=== PATIENT | female | born 1985 | race Caucasian/White ===

== ENCOUNTER 2016-09-12 12:16 | Emergency (ER) | payer OTHER ==
[2016-09-12 12:24] VITALS: PULSE 70; BMI 32.3
--- NOTE | 2016-09-12 12:31 | PDOC ---
History of Present Illness - General History Source: Patient Exam Limitations: No Limitations - History of Present Illness Initial Comments: 09/12/16 12:46 The patient is a 31 year old female who is 6 weeks , A2 with a significant past medical history of GERD, who presents to the emergency department with vaginal bleeding for the past 2 weeks. She reports that her vaginal bleeding is a mild spotting, mostly noticeable when she wipes. She states that she recently saw her ARCADE TECHNICIAN who performed an ultrasound and sent her in for evaluation of a possible ectopic . She reports that she has some mild left lower abdominal pain, without radiation or modifying factors. The patient denies chest pain, shortness of breath, headache and dizziness. Denies fever, chills, nausea, vomit, diarrhea and constipation. Denies dysuria, frequency, urgency and hematuria. LMP: 08/06/2016 Allergies: Sulfa Past surgical history: (x2) Social history: No alcohol, tobacco or drug use reported ARCADE TECHNICIAN - Dr. Riley <Sree Beckett - Last Filed: 09/12/16 16:19> <Leigh Ann Gomez - Last Filed: 09/13/16 00:17> - General Chief Complaint: Vaginal Bleeding Stated Complaint: VAGINAL r/o ectopic BLEEDING, 6 WKS Time Seen by Provider: 09/12/16 12:29 Past History <Sree Beckett - Last Filed: 09/12/16 16:19> - Past Medical History Asthma: No Cancer: No Cardiac Disorders: No Diabetes: No GI Disorders: Yes (GERD) HTN: No Suicide Attempt (Hx): No Seizures: No Thyroid Disease: No - Immunization History Immunization Up to Date: Yes - Psycho/Social/Smoking Cessation Hx Anxiety: No Suicidal Ideation: No Smoking Status: No Smoking History: Never smoked Have you smoked in the past 12 months: No Number of Cigarettes Smoked Daily: 1 If you are a former smoker, when did you quit?: 2010 Information on smoking cessation initiated: No Hx Alcohol Use: No Drug/Substance Use Hx: No Substance Use Type: None Hx Substance Use Treatment: No <Leigh Ann Gomez - Last Filed: 09/13/16 00:17> - Past Medical History Allergies/Adverse Reactions: Allergies Allergy/AdvReac Type Severity Reaction Status Date / Time Sulfa (Sulfonamide Allergy Rash Verified 09/12/16 12:21 Antibiotics) Home Medications: Ambulatory Orders NK [No Known Home Medication] 09/12/16 Review of Systems - Review of Systems Able to Perform ROS?: Yes Comments:: 09/12/16 12:46 GENERAL/CONSTITUTIONAL: No fever or chills. No weakness. HEAD, EYES, EARS, NOSE AND THROAT: No change in vision. No ear pain or discharge. No sore throat. CARDIOVASCULAR: No chest pain or shortness of breath RESPIRATORY: No cough, wheezing, or hemoptysis. GASTROINTESTINAL: (+) Abdominal pain. No nausea, vomiting, diarrhea or constipation. GENITOURINARY: (+) Vaginal bleeding. No dysuria, frequency, or change in urination. MUSCULOSKELETAL: No joint or muscle swelling or pain. No neck or back pain. SKIN: No rash NEUROLOGIC: No headache, vertigo, loss of consciousness, or change in strength/ sensation. ENDOCRINE: No increased thirst. No abnormal weight change HEMATOLOGIC/LYMPHATIC: No anemia, easy bleeding, or history of blood clots. ALLERGIC/IMMUNOLOGIC: No hives or skin allergy. <Sree Beckett - Last Filed: 09/12/16 16:19> *Physical Exam - Vital Signs Last Vital Signs Temp Pulse Resp BP Pulse Ox 98.5 F 70 18 114/68 100 09/12/16 12:22 09/12/16 12:22 09/12/16 12:22 09/12/16 12:22 09/12/16 12:22 - Physical Exam Comments: 09/12/16 12:47 GENERAL: Awake, alert, and fully oriented, in no acute distress HEAD: No signs of trauma, normocephalic, atraumatic EYES: PERRLA, EOMI, sclera anicteric, conjunctiva clear ENT: Auricles normal inspection, hearing grossly normal, nares patent, oropharynx clear without exudates. Moist mucosa NECK: Normal ROM, supple, no lymphadenopathy, JVD, or masses LUNGS: No distress, speaks full sentences, clear to auscultation bilaterally HEART: Regular rate and rhythm, normal S1 and S2, no murmurs, rubs or gallops, peripheral pulses normal and equal bilaterally. ABDOMEN: Soft, normoactive bowel sounds. No guarding, no rebound. No masses EXTREMITIES: Normal inspection, Normal range of motion, no edema. No clubbing or cyanosis. NEUROLOGICAL: Cranial nerves II through XII grossly intact. Normal speech, normal gait, no focal sensorimotor deficits SKIN: Warm, Dry, normal turgor, no rashes or lesions noted. ARCADE TECHNICIAN: (+) Left sided adnexal tenderness. Scant vaginal bleeding. <Sree Beckett - Last Filed: 09/12/16 16:19> - Vital Signs Last Vital Signs Temp Pulse Resp BP Pulse Ox 98.5 F 70 18 114/68 100 09/12/16 12:22 09/12/16 12:22 09/12/16 12:22 09/12/16 12:22 09/12/16 12:22 <Leigh Ann Gomez - Last Filed: 09/13/16 00:17> ED Treatment Course - LABORATORY CBC & Chemistry Diagram: 09/12/16 12:57 - RADIOLOGY Radiograph Interpretation: 09/12/16 16:19 Transvaginal ultrasound Reviewed by: Dr. Ruben King Impression: An intrauterine gestation is noted. No embryonic cardiac activity is seen at this time. <Sree Beckett - Last Filed: 09/12/16 16:19> - LABORATORY CBC & Chemistry Diagram: 09/12/16 12:57 <Leigh Ann Gomez - Last Filed: 09/13/16 00:17> Medical Decision Making - Medical Decision Making 09/12/16 13:11 This 31-year-old female was sent over from Dr. Riley's office for concern of ectopic Seen by Dr. Riley on Tuesday Past medical history significant for 5, para 2 Past surgical history includes 2 C-sections -statistical financial analyst called and Dr. Samano [phone] would like a call back once we have her ultrasound and beta hcg 09/12/16 16:16 I discussed the findings with statistical financial analyst ,Dr. Kay Renee and the ultrasound shows intrauterine gestation of 6 weeks and 6 days, but there are no embryonic heart tones at this time Patient is Rh- and received Imogam The possibility of a heterotopic was discussed with the patient. She will follow-up with Dr. Riley this week 09/13/16 00:16 <Leigh Ann Gomez - Last Filed: 09/13/16 00:17> *DC/Admit/Observation/Transfer - Attestations Scribe Attestion: 09/12/16 12:47 Documentation prepared by Sree Beckett, acting as medical device assembler for Leigh Ann Gomez MD <Sree Beckett - Last Filed: 09/12/16 16:19> <Leigh Ann Gomez - Last Filed: 09/13/16 00:17> Diagnosis at time of Disposition: Threatened in first trimester - Discharge Dispostion Disposition: HOME Condition at time of disposition: Stable - Referrals Referrals: Jack Riley MD [Staff Physician] - - Patient Instructions Printed Discharge Instructions: DI for Threatened Additional Instructions: please see DR Riley this week for further evaluation
[2016-09-12 13:04] LABS: BASOPHIL 0.6 % (0-2.0); EOSINOPHIL 2.5 % (0-4.5); MCHC 34.4 g/dl (32.0-36.0); MEAN CELL VOLUME 81.5 fl (80-96); MEAN PLT VOLUME 8.3 fl (7.5-11.1); NEUTROPHILS 64.2 % (42.8-82.8); PLATELET COUNT 208 K/MM3 (134-434); WHITE BLOOD COUNT 6.2 K/mm3 (4.0-10.0)
[2016-09-12] MEDS ORDERED: RHO(D) IMMUNE GLOBULIN 1,500 UNIT DISP.SYRIN IM ONE (16:11)
[2016-09-12 16:57] VITALS: BP 121/68; TEMP 98.9
== END 2016-09-12 16:57 | disposition home or self-care (01) ==
LOC: JER 12:16
PROC: 3E0234Z Introduction of Serum, Toxoid and Vaccine into Muscle, Percutaneous Approach (ICD-10-PCS; principal; 2016-09-12)
DX: O20.0 Threatened abortion (principal); O36.0910 Maternal care for other rhesus isoimmunization, first trimester, not applicable or unspecified; Z3A.01 Less than 8 weeks gestation of pregnancy
CPT/HCPCS: 36415; 76817-TC; 84702; 85025; 86999; 96372; 99283-25; J1561

== ENCOUNTER 2016-09-20 11:39 | Day surgery (SDC) | payer OTHER ==
[2016-09-17 11:37] VITALS: BMI 31.2
[2016-09-20] MEDS ORDERED: MIDAZOLAM HCL 2 MG/2 ML SINGLE DOSE VIAL ONE (14:00)
[2016-09-20] MEDS ORDERED: oxyCODONE HCL 5 MG TABLET PO PRN (14:02)
[2016-09-20] MEDS ORDERED: ONDANSETRON 4 MG/2 ML VIAL IVPUSH PRN (14:02)
[2016-09-20] MEDS ORDERED: PROMETHAZINE HCL 25 MG/1 ML VIAL IVPUSH PRN (14:02)
[2016-09-20 16:10] VITALS: TEMP 98.8
[2016-09-20 17:16] VITALS: BP 105/55; PULSE 74
--- NOTE | 2016-09-20 18:36 | HP ---
Past Medical History - Primary Care Physician PCP:: Jack Riley - Admission Chief Complaint: 31yo P2 with missed , admitted for suction D&C. History of Present Illness: Missed early . pt has been bleeding on and off and requested surgical mgt. 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: Alzheimer's, CVA, Dementia, Migraine, Multiple Sclerosis, Peripheral Neuropathy, Parkinson's, Seizure, Syncope, TIA, Vertigo, Other Cardiovascular: No: AFIB, Aneurysm, Aortic Insufficiency, Aortic Stenosis, CAD, CHF, Deep Vein Thrombosis, HTN, Hyperlipdemia, TN, Mitral Insufficiency, Mitral Stenosis, Murmur, Pulmonary Hypertension, Other Pulmonary: No: Asthma, Bronchitis, Cancer, COPD, O2 Dependent, Pneumonia, Previously Intubated, Pulmonary Embolus, Pulmonary Fibrosis, Sleep Apnea, Other Gastrointestinal: No: Ascites, Cancer, Constipation, Crohn's Disease, Diverticulitis, Diverticulosis, Esophageal Varices, Gastritis, GERD, GI Bleed, Hemorrhoids, Hiatal Hernia, Inflamatory Bowel Disease, Irritable Bowel Disease, Pancreatitis, Peptic Ulcer Disease, Ulcerative Colitis, Other Hepatobiliary: No: Cirrhosis, Cholelithiasis, Cholecystitis, Choledocholithiasis , Hepatitis A, Hepatitis B, Hepatitis C, Other Renal/: No: Renal Failure, Renal Inusuff, BPH, Cancer, Hematuria, Hemodialysis , Neurogenic Bladder, Renal Calculi, UTI, Other Reproductive: No: Ectopic , Endometriosis, Fibroids, PID, Polycystic Ovary Syndrome, Postmenopausal, Other ...Para: 2 (C/S x 2) Heme/Onc: Yes: Anemia Infectious Disease: No: AIDS, C-Diff, Herpes Zoster, HIV, MRSA, STD's, Tuberculosis, VREF, Other Psych: No: Addictions, Anxiety, Bipolar, Depression, Panic, Psychosis, Schizophrenia, Other Musculoskeletal: No: Bursitis, Chronic low back pain, Hemiparesis, Hemiplegia, Osteoarthritis, Paraplegia, Other Rheumatology: No: Fibromyalgia, Gout, Lupus, Rheumatoid Arthritis, Sarcoidosis, Vasculitis, Other ENT: No: Allergic Rhinitis, Sinusitis, Other Dermatology: No: Basal Cell, Cellulitis, Eczema, Melanoma, Psoriasis, Squamous Cell, Other - Past Surgical History Past Surgical History: Yes: Hx Myomectomy: No Hx Transabdominal Cerclage: No Additional Surgical History: Breast reduction, Abortions - Smoking History Smoking history: Former smoker Have you smoked in the past 12 months: No Aproximately how many cigarettes per day: 1 If you are a former smoker, when did you quit?: 2016 - Alcohol/Substance Use Hx Alcohol Use: No History of Substance Use: reports: None - Social History Usual Living Arrangement: Yes: With Spouse, With Child ADL: Independent History of Recent Travel: No Home Medications - Allergies Allergies/Adverse Reactions: Allergies Allergy/AdvReac Type Severity Reaction Status Date / Time Sulfa (Sulfonamide Allergy "RASH,SWELLING Verified 09/17/16 11:37 Antibiotics) FEVER" - Home Medications Home Medications: Ambulatory Orders NK [No Known Home Medication] 09/12/16 Family Disease History - Family Disease History Family History: Denies Review of Systems - Review of Systems Constitutional: reports: No Symptoms Eyes: reports: No Symptoms HENT: reports: No Symptoms Neck: reports: No Symptoms Cardiovascular: reports: No Symptoms Respiratory: reports: No Symptoms Gastrointestinal: reports: No Symptoms Genitourinary: reports: No Symptoms Breasts: reports: No Symptoms Reported Musculoskeletal: reports: No Symptoms Integumentary: reports: No Symptoms Neurological: reports: No Symptoms Endocrine: reports: No Symptoms Hematology/Lymphatic: reports: No Symptoms Psychiatric: reports: No Symptoms Pain Intensity: 0 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 Vital Signs: Vital Signs Temperature 98.8 F 09/20/16 16:00 Pulse Rate 74 09/20/16 17:13 Respiratory Rate 18 09/20/16 17:13 Blood Pressure 105/55 09/20/16 17:13 O2 Sat by Pulse Oximetry (%) 99 09/20/16 16:00 Constitutional: Yes: Well Nourished, No Distress, Calm Eyes: Yes: WNL, Conjunctiva Clear HENT: Yes: WNL, Atraumatic, Normocephalic Neck: Yes: WNL, Supple, Trachea Midline Cardiovascular: Yes: WNL, Regular Rate and Rhythm Respiratory: Yes: WNL, Regular, CTA Bilaterally Gastrointestinal: Yes: Normal Bowel Sounds, Soft, Abdomen, Obese ...Rectal Exam: Yes: Deferred Renal/: Yes: WNL Pelvis: Yes: WNL External Genitalia: Yes: Normal Internal Exam Deferred: No Vaginal Exam: Yes: Normal, Bleeding Cervix: Yes: Normal Uterus: Yes: Normal Adnexa: Normal: Left, Right Musculoskeletal: Yes: WNL Extremities: Yes: WNL Edema: No Integumentary: Yes: WNL Neurological: Yes: WNL, Alert, Oriented ...Motor Strength: WNL Psychiatric: Yes: WNL, Alert, Oriented Imaging - Results Ultrasound: Report Reviewed Assessment/Plan 31yo P2 with missed , admitted for suction D&C. We had discussed the risks, benefits, alternatives of surgery at length including but not limited to infection, bleeding, scarring, perforation, amenorrhea, infertility, hysterectomy, etc. The pt verbalized understanding and requested to proceed with surgery. I emphasized that all surgeries have risks and no guarantees can be provided.
--- NOTE | 2016-09-20 18:39 | OP ---
Operative Note - Note: Operative Date: 09/20/16 Pre-Operative Diagnosis: Missed Ab Operation: Suction, D&C Findings: POC Post-Operative Diagnosis: Same as Pre-op Surgeon: Jack Riley Anesthesiologist/ADOPTION SPECIALIST: Eliseo Lopez Anesthesia: General Specimens Removed: POC Estimated Blood Loss (mls): 30 Blood Volume Replaced (mls): 0 Fluid Volume Replaced (mls): 100 Operative Report Dictated: Yes
--- NOTE | 2016-09-21 11:03 | OP ---
DATE OF OPERATION: 09/20/2016 PREOPERATIVE DIAGNOSIS: Missed . POSTOPERATIVE DIAGNOSIS: Missed . PROCEDURE: Suction dilatation and curettage. SURGEON: Jack Riley MD ANESTHESIOLOGIST: Dr. Eliseo Lopez NURSE RISK CONTROL MANAGER: Matty Huynh ANESTHESIA: General. COMPLICATIONS: None. ESTIMATED BLOOD LOSS: 30 mL. INTRAVENOUS FLUIDS: Crystalloid, 100 mL. PATHOLOGY: Placenta. FINDINGS: Examination under anesthesia revealed a small anteverted uterus, a small amount of bleeding in the vagina. Cervical os was closed. Suction curettage revealed products of conception. No retained tissue at the end of the procedure. DESCRIPTION OF PROCEDURE: The patient was met preoperatively. Risks, benefits, and alternatives of surgery were discussed in details. All questions were answered. The patient was then brought to the OR with the IV running. She was placed on the surgical table in the supine position. The anesthesia was achieved without difficulties. The patient was then placed in a dorsal lithotomy position using adjustable Lawrence stirrups. The patient was examined under anesthesia with the findings as described above. The patient was then prepped and draped in the usual sterile fashion. A sterile speculum was introduced inside the vagina with good visualization of the cervix. The cervix was dilated to accommodate size 23 Ambriz dilator. A 7-mm suction curette was then used to evacuate the products of conception. Once the products of conception were removed, a sharp curette was used to confirm no retained tissue. Once this was completed, good hemostasis was noted. The instruments were removed from the patient. Sponge, lap, and needle counts were correct. The patient was transferred to the recovery room in stable condition and awake. Karin [id number]
--- NOTE | 2016-09-23 12:52 | PATH ---
Surgical Pathology Report Patient Name: ELIZABETH MEREDITH [facility]. Rec. #: [id number] /Age/Gender: 1985 (Age: 31) / F Account: [id number] Location: [facility] SURGICAL Taken: 09/20/2016 Received: 09/22/2016 Reported: 09/23/2016 Physicians: Jack Riley M.D. Specimen(s) Received PRODUCTS OF CONCEPTION Clinical History Missed Final Diagnosis PRODUCT OF CONCEPTION: NO SOMATIC TISSUE IDENTIFIED. CHORIONIC VILLUS TISSUE PRESENT. FRAGMENTS OF DECIDUA. Electronically Signed Adarsh Hernandez M.D. Gross Description Received in formalin labeled "products of conception" is a 9.0 x 6.5 x 0.8 cm aggregate of yang-brown soft tissue fragments. Villous tissue is identified. No definite somatic tissue is identified. A leasing representative portion is submitted in one cassette. /09/22/201609/22/2016
== END 2016-09-20 17:18 | disposition home or self-care (01) ==
LOC: JASU-SURG 11:39
PROVIDERS: ATTEND Obstetrics & Gynecology
PROC: 10D17ZZ Extraction of Products of Conception, Retained, Via Natural or Artificial Opening (ICD-10-PCS; principal; 2016-09-20 13:00)
DX: O02.1 Missed abortion (principal)
CPT/HCPCS: 86850; 86870; 86900; 86901; 86902; 88305-TC; 94760

== ENCOUNTER 2017-11-11 15:22 | Emergency (ER) | payer OTHER ==
[2017-11-11] MEDS ORDERED: IBUPROFEN 600 MG TABLET (FP) PO ONE (15:42)
--- NOTE | 2017-11-11 15:43 | PDOC ---
Rapid Medical Evaluation Time Seen by Provider: 11/11/17 15:40 Medical Evaluation: Allergies Allergy/AdvReac Type Severity Reaction Status Date / Time Sulfa (Sulfonamide Allergy "RASH,SWELLING Verified 11/11/17 15:39 Antibiotics) FEVER" 11/11/17 15:40 Pt c/o : rt foot pain x 2 hrs while walking, now with swelling. Worsened with movement. Pt on exam: with mild mid foot edema and tenderness, no deformity Pt ordered for: chelsea Pt to proceed to the ED Discharge Disposition - Diagnosis Foot pain, right - Referrals - Patient Instructions - Post Discharge Activity
[2017-11-11 15:48] VITALS: BP 128/78; PULSE 102; TEMP 99.3; BMI 29.2
[2017-11-11] MEDS ORDERED: ACETAMINOPHEN 500 MG TABLET (FP) PO ONE (16:42)
[2017-11-11] MEDS ORDERED: ACETAMINOPHEN 500 MG TABLET (FP) ONE (16:48)
--- NOTE | 2017-11-11 16:48 | PDOC ---
History of Present Illness - General Chief Complaint: Pain Stated Complaint: RIGHT FOOT IN PAIN Time Seen by Provider: 11/11/17 15:40 History Source: Patient - History of Present Illness Initial Comments: 11/11/17 16:48 32 year old female with medical history of GERD, hiatal hernia, and IBS presents with pain in right foot after twisted foot while walking and hearing a pop sound. Patient reports pain and swelling immediately afterwards making it difficult to bear weight. States even at rest having pain in ankle and foot. Denies numbness or tingling in toes. Severity: Yes: mild Lower Extremity Pain Location: right: foot Method of Injury: Yes: twisted Modifying Factors: improves with: immobilization, rest Lower Ext. Injury Location - Specific Injury Location Hips: bilateral hip: no evidence of injury Legs: bilateral: normal inspection Knees: bilateral no evidence of injury Ankle: right pain Foot: right foot soft tissue tenderness, right foot pain Extremity Pain Location - Extremity Pain Location Extremity Pain Locations: right: foot Past History - Travel Traveled outside of the country in the last 30 days: No - Past Medical History Allergies/Adverse Reactions: Allergies Allergy/AdvReac Type Severity Reaction Status Date / Time Sulfa (Sulfonamide Allergy "RASH,SWELLING Verified 11/11/17 15:39 Antibiotics) FEVER" Home Medications: Ambulatory Orders Naproxen [Naprosyn -] 500 mg PO BID #14 tablet 11/11/17 Nortriptyline HCl [Pamelor -] 25 mg PO HS 11/11/17 Pantoprazole Sodium [Protonix] 40 mg PO DAILY 11/11/17 Asthma: No Cancer: No Cardiac Disorders: Yes (MURMUR) COPD: No Diabetes: No GI Disorders: Yes (GERD) HTN: No Seizures: No Thyroid Disease: No - Reproductive History (#): 6 Para: 2 - Immunization History Immunization Up to Date: Yes - Suicide/Smoking/Psychosocial Hx Smoking Status: No Smoking History: Former smoker Have you smoked in the past 12 months: No Number of Cigarettes Smoked Daily: 1 If you are a former smoker, when did you quit?: 2016 Information on smoking cessation initiated: No Hx Alcohol Use: No Drug/Substance Use Hx: No Substance Use Type: None Hx Substance Use Treatment: No Review of Systems - Review of Systems Able to Perform ROS?: Yes Is the patient limited Latvian proficient: No Constitutional: No: Chills, Fever HEENTM: No: Nose Pain, Nose Congestion, Throat Pain, Throat Swelling Respiratory: No: Cough, Orthopnea ABD/GI: No: Abdominal Distended : No: Burning, Dysuria, Discharge, Incontinence, Urgency Musculoskeletal: Yes: Joint Pain, Joint Swelling Integumentary: No: Bruising, Erythema Neurological: No: Numbness, Paresthesia *Physical Exam - Vital Signs Last Vital Signs Temp Pulse Resp BP Pulse Ox 99.3 F 102 H 20 128/78 100 11/11/17 15:39 11/11/17 15:39 11/11/17 15:39 11/11/17 15:39 11/11/17 15:39 - Physical Exam General Appearance: Yes: Nourished, Appropriately Dressed. No: Apparent Distress HEENT: positive: EOMI, LATIA, TMs Normal, Pharynx Normal Neck: positive: Supple. negative: Lymphadenopathy (R), Lymphadenopathy (L) Respiratory/Chest: positive: Lungs Clear, Normal Breath Sounds. 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 NML intact, Fully Oriented ED Treatment Course - RADIOLOGY Radiology Studies Ordered: Category Date Time Status ANKLE & FOOT-RIGHT* [RAD] Stat Radiology 11/11/17 16:42 Ordered - Medications Given in the ED: ED Medications Discontinued Medications Generic Name Dose Route Start Last Admin Trade Name Jeanmarieq PRN Reason Stop Dose Admin Ibuprofen 600 mg 11/11/17 15:42 11/11/17 15:45 Motrin - PO 11/11/17 15:43 Not Given ONCE ONE Medical Decision Making - Medical Decision Making 11/11/17 16:45 32 year old female with medical history of GERD, hiatal hernia, and IBS presents with pain in right foot after twisted foot while walking and hearing a pop sound. 11/11/17 16:48 analgesia and xray ordered *DC/Admit/Observation/Transfer Diagnosis at time of Disposition: Foot pain, right - Discharge Dispostion Disposition: HOME Condition at time of disposition: Good Decision to Admit order: No - Prescriptions Prescriptions: Naproxen [Naprosyn -] 500 mg PO BID #14 tablet - Referrals Referrals: Santhosh Bauman [Primary Care Provider] - - Patient Instructions Printed Discharge Instructions: DI for Foot Sprain Additional Instructions: Please keep foot elevated when at rest Apply ice for 20 minutes 3 to 4 times daily for 3 days May call ortho for follow up appointment Activity as tolerated Use esme wrap when up and about, take off for showering and sleep - Post Discharge Activity Forms/Work/School Notes: Back to Work
== END 2017-11-11 18:33 | disposition home or self-care (01) ==
LOC: JER 15:22 → JERFT 15:22
DX: S93.691A Other sprain of right foot, initial encounter (principal); M79.671 Pain in right foot; X50.1XXA Overexertion from prolonged static or awkward postures, initial encounter; Y93.01 Activity, walking, marching and hiking; Y92.89 Other specified places as the place of occurrence of the external cause; Y99.8 Other external cause status
CPT/HCPCS: 73610-TC-RT-FY; 73630-TC-RT-FY; 84703; 99281-25